=== PATIENT | female | born 1950 | race Caucasian/White ===

== ENCOUNTER → 2016-04-27 | Outpatient (CLI) | payer BC ==
[~2016-04-27] MED LIST: ALBU0.08 INH; CHOL100010 PO; CLON1TAB3 PO; CYCL10TA6 PO; DEXL60CA4 PO; EFFSR150 PO; FLUT0.0529 NAE; FRN PO; HYDR-5688 PO; INSDGI SC; LAMO1TAB21 PO; LEVO50TA6 PO; LINA1CAP PO; LSX20 PO; METF-384 PO; NVLGI/PEN SC; POTA10TA33 PO; PROM25TA PO; RANI300T PO; SNG10 PO; SUMA100T15 PO; VRPSR240 PO; ZOLP10TA6 PO
--- NOTE | 2016-04-27 15:11 | DIAGNOSTIC IMAGING REPORT ---
PA CHEST ABDOMINAL SERIES CLINICAL HISTORY: Generalized abdominal pain. Nausea and vomiting. Fatigue. FINDINGS: A PA chest radiograph is compared to study dated 02/02/2016. The cardiomediastinal silhouette is unremarkable. There is atherosclerotic calcification of the thoracic aorta. Chronic residual thickening is similar to previous. No airspace consolidation or pleural effusion is identified. No pneumothorax is seen. The skeletal structures are osteopenic. The bony thorax is grossly intact. Supine and erect abdominal radiographs are correlated with abdominal CT dated 02/02/2016. The examination is degraded by large body habitus. There is a nonobstructed abdominal bowel gas pattern. Moderate colonic fecal retention is observed. No intraperitoneal free air is seen. Surgical clips are seen in the right lower quadrant. There are no abnormal abdominal calcifications. There is mild lumbosacral spondylosis and scoliosis. The bony pelvis appears intact. IMPRESSION: 1. No active disease in the chest. 2. Nonobstructed abdominal bowel gas pattern noting moderate colonic fecal retention. Electronically signed by: Chas Vera M.D. 04/27/2016 3:10 PM Dictated Date/Time: 04/27/2016 3:07 PM
[2016-04-27 17:11] LABS: BASO % 0.3 %; BASO ABS # 0.02 K/uL (0-0.2); COMPLETE YES; EOS % 1.5 %; HEMATOCRIT 39.2 % (37-47); IG% 0.3 %; LYMPH % 35.7 %; LYMPH ABS # 2.56 K/uL (1.2-3.4); MEAN CELL VOLUME 82.2 fL (80-100); MEAN CORPUSCULAR HEMOGLOBIN 27.7 pg (25-34); MEAN CORPUSCULAR HGB CONC 33.7 g/dl (32-36); MEAN PLATELET VOLUME 9.2 fL (7.4-10.4); MONO % 6.4 %; NEUT % 55.8 %; PLATELET COUNT 250 K/uL (130-400); RED BLOOD COUNT 4.77 M/uL (4.2-5.4); WHITE BLOOD COUNT 7.17 K/uL (4.8-10.8)
[2016-04-27 17:19] LABS: ALT/SGPT 14 U/L (12-78); BLOOD UREA NITROGEN 13 mg/dl (7-18); BUN/CREATININE RATIO 13.4 (10-20); CALCIUM 9.2 mg/dl (8.5-10.1); CARBON DIOXIDE 26 mmol/L (21-32); CHLORIDE 101 mmol/L (98-107); CREATININE 0.99 mg/dl (0.60-1.20); GLUCOSE 175 mg/dl (70-99); SODIUM 139 mmol/L (136-145)
[2016-04-27 17:22] LABS: ALKALINE PHOSPHATASE 100 U/L (45-117); AST/SGOT 15 U/L (15-37)
[2016-04-27 18:51] LABS: ESTIMATED AVERAGE GLUCOSE 180 mg/dl; HA1C FLAG Normal (Normal)
--- NOTE | 2016-05-04 06:54 | CODING QUERY MEDICAL NECESSITY ---
: 1950 SUPPORTING DIAGNOSIS NEEDED A supporting diagnosis is required for the test/procedure performed on this patient in order for us to be reimbursed by the patient's insurance. Please provide a supporting diagnosis for the following test/procedure listed below next to the test name along with your signature. *If there is no additional diagnosis for this patient that would support the following test/procedure please document that below next to the test/procedure. Test(s)/Procedure(s) that require a supporting diagnosis: DOS: 04/27/16 * Vitamin D, 25-Hydroxy DIAGNOSIS: Provider Signature: Date: Thank you [facility] Information [facility] Once completed, please kindly fax back to [phone] For questions please call [phone]
== END | disposition home or self-care (01) ==
LOC: C.RADPV 14:23
PROVIDERS: ATTEND Family Medicine
DX: R10.9 Unspecified abdominal pain (principal); R53.83 Other fatigue; R11.2 Nausea with vomiting, unspecified; E11.9 Type 2 diabetes mellitus without complications; E78.5 Hyperlipidemia, unspecified; Z86.79 Personal history of other diseases of the circulatory system; M25.532 Pain in left wrist; K59.00 Constipation, unspecified; M25.50 Pain in unspecified joint

== ENCOUNTER → 2016-05-19 | Outpatient (CLI) | payer BC ==
--- NOTE | 2016-05-19 10:46 | DIAGNOSTIC IMAGING REPORT ---
CHEST 2 VIEWS ROUTINE HISTORY: Pain aggravated by coughing COMPARISON: Chest 04/27/2016. FINDINGS: The lungs are clear. Cardiac silhouette is normal in size. No pleural effusions. No pneumothorax. IMPRESSION: No acute process. Electronically signed by: Naun Ortez M.D. 05/19/2016 10:45 AM Dictated Date/Time: 05/19/2016 10:43 AM
== END | disposition home or self-care (01) ==
LOC: C.RADPV 10:24
PROVIDERS: ATTEND Nurse Practitioner Family
DX: R52 Pain, unspecified (principal); R05 Cough

== ENCOUNTER → 2016-05-19 | Outpatient (CLI) | payer BC | END | disposition home or self-care (01) | LOC: C.LABPVFM 11:32 | PROVIDERS: ATTEND Family Medicine | DX: Z11.59 Encounter for screening for other viral diseases (principal); J02.9 Acute pharyngitis, unspecified ==